=== PATIENT | male | born 1990 | race African-American/Black ===

== ENCOUNTER 2016-09-29 23:47 | Emergency (ER) | payer SELFPAY ==
[~2016-09-29] VITALS: Ht 188 cm; Wt 89.5 kg
[2016-09-29 23:52] VITALS: BP 141/86; TEMP 98.6
[2016-09-30] MEDS ORDERED: AMOXICILLIN 50500 MG PO (01:07)
[2016-09-30 01:18] VITALS: PULSE 68
== END 2016-09-30 01:25 | disposition home or self-care (01) ==
LOC: COL.ER 23:47
DX: S01.511A Laceration without foreign body of lip, initial encounter (principal); Z23 Encounter for immunization; W25.XXXA Contact with sharp glass, initial encounter; Y92.69 Other specified industrial and construction area as the place of occurrence of the external cause

== ENCOUNTER → 2016-10-06 | Emergency (ER) | payer SELFPAY ==
[~2016-10-06] MED LIST: AMOXICILLIN 50500 MG PO
[2016-10-06 08:58] VITALS: BP 138/74; PULSE 66; TEMP 97.8
== END ==
LOC: COL.ER 08:52
DX: S01.81XD Laceration without foreign body of other part of head, subsequent encounter (principal); X58.XXXD Exposure to other specified factors, subsequent encounter